=== PATIENT | male | born 1990 | race Caucasian/White ===

== ENCOUNTER 2022-11-17 15:27 | Emergency (ER) | payer OTHER ==
[~2022-11-17] VITALS: Ht 175.3 cm; Wt 65.8 kg
[2022-11-17] MEDS ORDERED: IBUP800 PO (16:42)
== END 2022-11-17 16:50 | disposition home or self-care (01) ==
LOC: ER 15:27 → EDBD 15:27 → ER 16:50
DX: S93.401A Sprain of unspecified ligament of right ankle, initial encounter (principal); F17.200 Nicotine dependence, unspecified, uncomplicated; W17.89XA Other fall from one level to another, initial encounter
CPT/HCPCS: 73610; A9270